=== PATIENT | female | born 1930 | race Caucasian/White ===

== ENCOUNTER 2018-07-09 12:58 | Inpatient (IN) | payer MEDICARE, OTHER ==
[~2018-07-09] VITALS: Ht 172.7 cm; Wt 86.1 kg
[2018-07-09] VITALS (29 sets, daily range): BP systolic 104–157; BP diastolic 41–63; BMI 29.0
[2018-07-09 13:25] LABS: BASOPHILS 0.2 % (0-2); EOSINOPHILS 0.2 % (0-7); HEMATOCRIT 25.8 % (36.0-48.0); HEMOGLOBIN 8.5 g/dL (12-16); IMMATURE GRANULOCYTES 0.2 % (0-5); LYMPHOCYTES 5.9 % (15-50); MCH 30.4 pg (26.0-34.0); MCHC 32.9 g/dL (31.0-37.0); MCV 92.1 fL (80.0-100.0); MONOCYTES 5.7 % (2-11); NEUTROPHILS 87.8 % (40-80); PLATELET COUNT 111 10x3/uL (130-400); RDW 15.2 % (11.5-14.5); WBC 5.6 10x3/uL (4.8-10.8)
[2018-07-09] MEDS ORDERED: CYPROHEPTAD2 MG/5 ML PO (13:27)
[2018-07-09] MEDS ORDERED: BUMETANIDE0.5 MG PO (13:27)
[2018-07-09] MEDS ORDERED: K-TAB10 MEQ PO (13:28)
[2018-07-09] MEDS ORDERED: BENTYL10 MG PO (13:28)
[2018-07-09] MEDS ORDERED: COZAAR25 MG PO (13:29)
[2018-07-09] MEDS ORDERED: PRAVACHOL80 MG PO (13:29)
[2018-07-09] MEDS ORDERED: LOW DOSE ASPIRI81 M1 PO (13:29)
[2018-07-09] MEDS ORDERED: FLOMAX0.4 MG PO (13:30)
[2018-07-09] MEDS ORDERED: ROBAXIN500 MG PO (13:30)
[2018-07-09] MEDS ORDERED: PROTONIX40 MG PO (13:31)
[2018-07-09] MEDS ORDERED: ALDACTONE25 MG PO (13:31)
[2018-07-09] MEDS ORDERED: LEVOXYL75 MCG PO (13:32)
[2018-07-09] MEDS ORDERED: FUROSEMIDE40 MG (13:32)
[2018-07-09 13:33] LABS: APTT 26.7 SECONDS (22.8-39.4); INR 1.13 (0.85-1.17)
[2018-07-09 13:37] LABS: ALBUMIN 2.8 g/dL (3.4-5.0); ANION GAP 10.6 mmol/L (8-16); BILIRUBIN - TOTAL 1.42 mg/dL (0.2-1.3); CARBON DIOXIDE 32.3 mmol/L (21.0-32.0); CREATININE - SERUM 0.9 mg/dL (0.6-1.3); POTASSIUM - SERUM 3.9 mmol/L (3.5-5.1); PROTEIN - SERUM 5.9 g/dL (6.4-8.2)
[2018-07-09 17:39] LABS: HEMATOCRIT 29.9 % (36.0-48.0); HEMOGLOBIN 10.1 g/dL (12-16)
--- NOTE | 2018-07-09 19:45 | NUR ---
REC'D TO CARE, PIER HAND PER FLOWSHEET. PT LYING SUPINE, BIPAP MASK ON. IV GTT PER FLOWSHEET - WILL TITRATE PER ORDER. L GROIN SITE C/D/I. PEDAL PULSES PALP - FEET WARM. PT NODS HEAD APPROP, TALKS WITH MASK ON. ORIENTED TO SITUATION BY NURSE. ALARMS ON. WILL CONT CLOSE MONITORING.
--- NOTE | 2018-07-09 20:33 | NUR ---
1615-FROM OR ACCOMPANIED BY OR TEAM-L GROIN SOFT AND DRY-WOUND VAD-L PPP-SKINNER TEMP-96.5-CALI BOLIVARGGER PLACED-R IJ INFUSING-N/S AT 100ML/W-MFA-EFHWPWQM 138SYS PORT CXR DONE-FAMILY BROUGHT TO [facility]-PT CHANGED FROM 10L SIMPLE MASK-TO 6L INDIRECT FIRE INFANTRYMAN-SAT 99%- 1630-CLEVIPREX PLACED ON [id number]-[id number]-610 SYS NTG GTT AT 30ML/H-DILAUDID 0.5MG IVP GIVEN- 1645-NOTED ABP DECREASED TO 128 AND NTG GTT TITRATED TO 20MLH-SR ON MONITOR 1700-NOTED HR 47 JUNCTIONAL-ABP 84 SYS -O2 SAT 84-DR PATEL NOTIFIED-STAT ABG AND HGB AND HCT DRAWN-O2 10L SIMPLE MASK-NTG TURNED OFF AND LEVOPHED GTT STARTED FOR 1.1 MCG-HR INCREASED TO 52?JUNCTIONAL VERSUS BLOCK-ABP INCREASED TO 162 SYS-DR PATEL CALLED WITH ALL RESULTS-ORDER RECIVED-DR MOTT NOTIFIED OF CONSULT-LASIX 20MG IVP GIVEN-LEVOPHED CHANGED TO DOAMINE AT 3MCG 1730-DR ANAYA PG'D WITH CONSULT 1720-RTURN CALL FROM DR MOTT-STATUS REPORT GIVEN-TELEPHONE GIVEN TO RT -SATURNINO FOR BIPAP SETTINGS 174-RETURN CALL FROM DR ANAYA RECIEVED AND STATUS REPORT GIVEN -12 LEAD DONE NOTED JUNCTIONAL-AT THIS TIME -CONTINUED DOPAMINE AT 3MCG -ADDITIONAL ORDERS RECIEVD-CHECKED PT MEDS FOR BETABLOCKER-NONE FOUND- 1814-NOTED POSSIBLE SR ON MONITOR VERSUS 2:1 BLOCK-2ND DEGREE-[address] AND ANALYZED SAME FOR SR WITH NO DETECTED BLOCK-[address] 184-DR MOTT AT [facility]-REMAIN ON BIPAP AND STRICT NPO-L GROIN WOUND VAC SOFT TO TOUCH-CONTAINER EMPTY
--- NOTE | 2018-07-09 20:45 | NUR ---
PT GIVEN BREAK FROM BIPAP TO 5L NC, ORAL CARE PROVIDED. FAMILY AT BS TO HELP ANSWER QUESTIONS FOR ADMISSION HX AND MED REC. PT TOLERATED WITHOUT DISTRESS. ANSWERING APPROP.
--- NOTE | 2018-07-09 21:06 | NUR ---
DR. PATEL UPDATED ON PT STATUS, HR 70S, SR AND SOMETIMES JUNCTIONAL STAYING SAME RATE. NEW ORDER REC'D.
[2018-07-09] MEDS ORDERED: CYPROHEPTADINE HCL PO (21:11)
--- NOTE | 2018-07-09 21:50 | NUR ---
DR. ANAYA UPDATED ON PT STATUS, CM - RATE/RHYTHM AND DOPAMINE ORDER CLARIFIED.
--- NOTE | 2018-07-09 22:36 | NUR ---
PT RESTING QUIETLY, ON BIPAP, NO SIGN OF DISTRESS. C/L IN REACH. ALARMS ON.
[2018-07-09] MEDS ORDERED: MULTI-DAY VITAM1 TAB PO (23:03)
[2018-07-09] MEDS ORDERED: VITAMIN E200 UNI1 PO (23:04)
[2018-07-09] MEDS ORDERED: EYLEA OP (23:09)
[2018-07-09] MEDS ORDERED: CYANOCOBALAMIN IM (23:11)
[2018-07-09] MEDS ORDERED: CALCIUM 600 +1 EAC3 PO (23:14)
[2018-07-09] MEDS ORDERED: PROBIOTIC BLEN1 EACH PO (23:17)
[2018-07-09] MEDS ORDERED: PRESERVISION AREDS 2 PO (23:21)
--- NOTE | 2018-07-09 23:30 | NUR ---
REASSESSMENT PER FLOWSHEET, NO ACUTE CHANGES. CONT BREAKS FROM BIPAP NEEDED. PT COOPERATIVE. DENIES PAIN AT THIS TIME. ALARMS ON AND C/L IN REACH.
[2018-07-10] VITALS (47 sets, daily range): BP systolic 108–149; BP diastolic 43–90; Ht 172.7 cm; Wt 86.1 kg
--- NOTE | 2018-07-10 01:50 | NUR ---
BREAK FROM BIPAP. ORAL CARE PROVIDED. PT ALERT AND ORIENTED. DENIES PAIN. REPOSITIONED TO L SIDE WITH PILLOWS. ALARMS ON AND C/L IN REACH.
--- NOTE | 2018-07-10 03:24 | NUR ---
REASSESSMENT PER FLOWSHEET, NO ACUTE CHANGES. VSS. CM - SR, JUNCTIONAL AT TIMES. PT COOPERATIVE, REPORTS "FEELING BETTER". L GROIN SITE C/D/I. ALARMS ON AND C/L IN REACH.
[2018-07-10 06:52] LABS: CALC OSMOLALITY 279 mosm/kg (275-300); CALCIUM 7.8 mg/dL (8.5-10.1); CARBON DIOXIDE 30.8 mmol/L (21.0-32.0); CHLORIDE - SERUM 101 mmol/L (98-107); CREATININE - SERUM 0.7 mg/dL (0.6-1.3); GLUCOSE 116 mg/dL (74-106); POTASSIUM - SERUM 3.5 mmol/L (3.5-5.1); SODIUM 138 mmol/L (136-145); UREA NITROGEN 22 mg/dL (7-18); eGFR NON AFRICAN AMERICAN 84 mL/min (90-120)
[2018-07-10 07:49] LABS: HEMATOCRIT 30.8 % (36.0-48.0); HEMOGLOBIN 10.5 g/dL (12-16); MCH 29.8 pg (26.0-34.0); MCHC 34.1 g/dL (31.0-37.0); MEAN PLATELET VOLUME 9.1 fL (7.4-10.4); PLATELET COUNT 90 10x3/uL (130-400); RDW 15.5 % (11.5-14.5); WBC 4.6 10x3/uL (4.8-10.8)
[2018-07-10 08:02] LABS: MCV 87.5 fL (80.0-100.0); RBC 3.52 10x6/uL (4.00-5.40)
--- NOTE | 2018-07-10 08:02 | NUR ---
PT AWAKE AND REQUESTING BEDPAN. ASSISTED
[2018-07-10 08:46] LABS: PLATELET ESTIMATE NORMAL
--- NOTE | 2018-07-10 09:32 | NUR ---
morning medications provided. son and granddaughter now at bedside.
--- NOTE | 2018-07-10 10:56 | NUR ---
RIGHT RADIAL ART LINE REMOVED. TIP INTACT. RIGHT AC PIV REMOVED, TIP INTACT.
--- NOTE | 2018-07-10 11:18 | NUR ---
PT ASSISTED BY PHYSICAL THERAPIST UP TO CHAIR AT BEDSIDE. NO DISTRESS.
--- NOTE | 2018-07-10 12:27 | NUR ---
PT HAS HAD ECHO. NOW EATING LUNCH. REMAINS IN CHAIR.
--- NOTE | 2018-07-10 14:39 | NUR ---
PHYSICAL THERAPY AT BEDSIDE TO ASSIST FROM CHAIR TO BED.
--- NOTE | 2018-07-10 16:47 | OP ---
PATIENT NAME: SANDRA HARDIN MEDICAL RECORD: [id number] :34 LOCATION:[facility] ADMISSION DATE:07/09/18 SURGEON: JOON PATEL MD DATE OF OPERATION: 07/09/2018 SURGEON: Joon Patel MD SCENE PAINTER: JACQUELINE Shane PROCEDURE PERFORMED: Repair, left external iliac artery and drain retroperitoneal hematoma. PREOPERATIVE DIAGNOSIS: Left external iliac artery hemorrhage and retroperitoneal hematoma with pseudoaneurysm following cardiac catheterization. POSTOPERATIVE DIAGNOSIS: Left external iliac artery hemorrhage and retroperitoneal hematoma with pseudoaneurysm following cardiac catheterization. ANESTHESIA: General endotracheal anesthesia. ESTIMATED BLOOD LOSS: 50 cc. COMPLICATIONS: None. SPECIMENS: None. CONDITION: Guarded. DISPOSITION: CV ICU. OPERATIVE FINDINGS: 1. Anemia, 3 units total transfused. 2. Hematoma with the arterial puncture site slightly lateral and just had a large lateral branch off the external iliac artery required division of a branching external iliac vein over the repair site and then a primary repair, no evidence of dissection and good flow after repair. The retroperitoneal hematoma extended proximally, was drained as much as possible as small localized collection seen on the ultrasound. The patient had had a previous tummy tuck or panniculectomy in this area and the subcutaneous tissue was very poor, a Prevena was placed at the end of the procedure. INDICATION: Acute hemorrhage, left external iliac artery following cardiac catheterization approximately 3 days previously. DESCRIPTION OF PROCEDURE: The patient was brought emergently to the operating suite. General anesthesia was obtained, the patient was prepped and draped, incision over the old incision site just above the inguinal ligament was made and was taken down through subcutaneous tissue. The inguinal ligament was retracted upwardly, freed, and the common femoral was encircled. It was severely calcified. The external iliac was dissected out until the injury site was identified and finger pressure was held. More proximal control was obtained and femoral vein branch, iliac vein branch bridging over the top of the external iliac artery was divided between ligatures and oversewn with Prolene. Then, the artery was repaired primarily with Prolene. Thorough irrigation was undertaken. Hemostasis was assured. Surgicel was used. The wound was closed in 4 layers OPERATIVE REPORT [id number] SANDRA HARDIN including clips and a Prevena was placed. The patient had Doppler of left posterior tibial and dorsalis pedis pulses and taken to cardiovascular ICU. TRANSINT:[id number] Voice Confirmation ID: [id number] DOCUMENT ID: [id number] cc: Alcides Fraga MD JOON PATEL MD at 1647 CC: ALCIDES WILLETT MD [id number] DICTATION DATE: 07/09/18 1649 EQUIPMENT OPERAT0R: 07/09/18 2242 ADM IN [place] [id number] [place] [id number]
--- NOTE | 2018-07-10 17:08 | NUR ---
CALLED AND SPOKE WITH DR MOTT. PT C/O SOB. WILL ADD NEB TREATMENT.
[2018-07-11] VITALS (26 sets, daily range): BP systolic 111–157; BP diastolic 44–79
--- NOTE | 2018-07-11 09:15 | NUR ---
SHIFT ASSESSMENT COMPLETE. MORNING MEDICATIONS PROVIDED.
--- NOTE | 2018-07-11 12:45 | MORECARE ---
CASE MANAGEMENT DISCHARGE SUMMARY PATIENT: SANDRA HARDIN UNIT: [id number] ADM DATE: 07/09/18 AGE: 88 : 32 SEX: F ROOM/BED: D[facility] AUTHOR: BURT WETZEL PHYSICIAN: REFERRING PHYSICIAN: JULIAN PATEL MD DATE OF SERVICE: 07/11/18 Discharge Plan Patient Name: SANDRA HARDIN Facility: [facility]:[place] : 1930 Planned Disposition: Home or Self Care Anticipated Discharge Date: Discharge Date: Expected LOS: Initial Reviewer: [email or web address] Initial Review Date: 07/09/2018 Generated: 07/11/18 1:45 pm Patient Name: SANDRA HARDIN Page 12368 at 1245 All edits/amendments must be made on the electronic document DICTATION DATE: 07/11/18 1245 GORING CUTTER: YAZAN 07/11/18 1245 RPT#: [id number] PA DATE: STATUS: ADM IN [facility] [address] [place] [address] END OF REPORT
--- NOTE | 2018-07-11 12:48 | NUR ---
PT ASSISTED UP TO BEDSIDE COMMODE. C/O UPPER ABD PAIN
--- NOTE | 2018-07-11 12:54 | MORECARE ---
CASE MANAGEMENT DISCHARGE SUMMARY PATIENT: SANDRA HARDIN UNIT: [id number] ADM DATE: 07/09/18 AGE: 88 : 32 SEX: F ROOM/BED: D.[facility] AUTHOR: BURT WETZEL PHYSICIAN: REFERRING PHYSICIAN: JULIAN PATEL MD DATE OF SERVICE: 07/11/18 Discharge Plan Patient Name: SANDRA HARDIN [facility] : 1930 Planned Disposition: Home or Self Care Anticipated Discharge Date: Discharge Date: Expected LOS: Initial Reviewer: [email or web address] Initial Review Date: 07/09/2018 Generated: 07/11/18 1:54 pm DCPIA - Discharge Planning Initial Assessment Updated by [email or web address]: Haylee De Jesus on 07/11/18 12:46 pm * Is the patient Alert and Oriented? Yes * How many steps to enter\exit or inside your home? * PCP WISAM BEDOLLA * Pharmacy [facility] * Preadmission Environment Home Alone * ADLs Independent * Other Equipment WALKER, W/C, CANE, LIFE ALERT * List name and contact numbers for known caregivers / representatives who currently or will assist patient after discharge: SAKSHI HARDIN - DAUGHTER - [phone] * Verbal permission to speak to the caregivers and representatives has been obtained from the patient. Yes * Community resources currently utilized None * Additional services required to return to the preadmission environment? No * Can the patient safely return to the preadmission environment? Yes * Has this patient been hospitalized within the prior 30 days at any hospital? Yes Last DP export: 07/11/18 11:45 a Patient Name: SANDRA HARDIN Page 58091 at 1254 All edits/amendments must be made on the electronic document DICTATION DATE: 07/11/18 1253 PATTERN CARRIER: YAZAN 07/11/18 1253 RPT#: [id number] DC DATE: STATUS: ADM IN [facility] [address] [place] [address] END OF REPORT
--- NOTE | 2018-07-11 13:01 | MORECARE ---
CASE MANAGEMENT DISCHARGE SUMMARY PATIENT: SANDRA HARDIN UNIT: [id number] ADM DATE: 07/09/18 AGE: 88 : 32 SEX: F ROOM/BED: D.[facility] AUTHOR: DAMARI,DOC PHYSICIAN: REFERRING PHYSICIAN: JULIAN PATEL MD DATE OF SERVICE: 07/11/18 Discharge Plan Patient Name: SANDRA HARDIN Facility: [facility]:[place] : 1930 Planned Disposition: Home or Self Care Anticipated Discharge Date: Discharge Date: Expected LOS: Initial Reviewer: [email or web address] Initial Review Date: 07/09/2018 Generated: 07/11/18 2:00 pm Comments DCP- Discharge Planning Updated by [email or web address]: Haylee De Jesus on 07/11/18 11:[address] Patient Name: SANDRA HARDIN Admission Status: ER Accout number: [id number] Admission Date: 07-09-2018 : 1930 Admission Diagnosis: Attending: JULIAN PATEL Current LOS: 2 Anticipated DC Date: Planned Disposition: Home or Self Care Primary Insurance: MEDICARE A & B Discharge Planning Comments: CM met with patient at bedside about discharge planning /needs. Patient states she lives alone. Patient states she plans to discharge to her daughter's home. States she will have family transport her home upon discharge. Patient states her home environment is safe. Denies any discharge needs or concerns at this time. CM will continue to follow and assist as needed with discharge planning / needs. Personnel Supervisor: Haylee De Jesus DCPIA - Discharge Planning Initial Assessment Updated by [email or web address]: Haylee De Jesus on 07/11/18 12:46 pm * Is the patient Alert and Oriented? Yes * How many steps to enter\exit or inside your home? * PCP WISAM BEDOLLA * Pharmacy [facility] * Preadmission Environment Home Alone * ADLs Independent * Other Equipment WALKER, W/C, CANE, LIFE ALERT * List name and contact numbers for known caregivers / representatives who currently or will assist patient after discharge: SAKSHI HARDIN - DAUGHTER - [phone] * Verbal permission to speak to the caregivers and representatives has been obtained from the patient. Yes * Community resources currently utilized None * Additional services required to return to the preadmission environment? No * Can the patient safely return to the preadmission environment? Yes * Has this patient been hospitalized within the prior 30 days at any hospital? Yes Last DP export: 07/11/18 11:54 a Patient Name: SANDRA HARDIN Page 64892 at 1301 All edits/amendments must be made on the electronic document DICTATION DATE: 07/11/18 1300 COMMISSIONED SALES ASSOCIATE: YAZAN 07/11/18 1300 RPT#: [id number] DC DATE: STATUS: ADM IN [facility] [address] [place] [address] END OF REPORT
--- NOTE | 2018-07-11 17:30 | NUR ---
PT ASSISTED FROM CHAIR TO BED. CENTRAL LINE DRESSING AT RIGHT JUGULAR CHANGED.
[2018-07-12] VITALS (12 sets, daily range): BP systolic 122–171; BP diastolic 57–96
[2018-07-12 09:18] LABS: ALBUMIN 2.6 g/dL (3.4-5.0); ANION GAP 8.9 mmol/L (8-16); BILIRUBIN - TOTAL 0.85 mg/dL (0.2-1.3); CALCIUM 8.1 mg/dL (8.5-10.1); CARBON DIOXIDE 31.1 mmol/L (21.0-32.0); CREATININE - SERUM 0.9 mg/dL (0.6-1.3)
--- NOTE | 2018-07-12 10:13 | NUR ---
Rehab Prescreening Consult recieved and the chart has been reviewed. She is a good ARU candidate if she is able to actively participate in the 3 hrs of therapy daily that medicare requires. Malu Valdes RN Clinical Liaison, Rehab
[2018-07-12 10:26] LABS: HEMATOCRIT 34.5 % (36.0-48.0); HEMOGLOBIN 11.1 g/dL (12-16); MCH 29.7 pg (26.0-34.0); MCHC 32.2 g/dL (31.0-37.0); MCV 92.2 fL (80.0-100.0); MEAN PLATELET VOLUME 9.6 fL (7.4-10.4); RBC 3.74 10x6/uL (4.00-5.40); RDW 15.2 % (11.5-14.5)
--- NOTE | 2018-07-12 11:20 | NUR ---
Nutrition Follow Up: Pt was unavailable at the time of RD visit. Interview deferred. Diet: Regular; Ensure 1x/d PO Intake: 35% meal avg No BM since admit I>O Labs reviewed Meds noted including Bumex Rec continue current diet, supplement regimen. RD following.
--- NOTE | 2018-07-12 14:20 | NUR ---
R IJ DC'D. MANUAL PRESSURE HELD X 2 MIN. DRESSED WITH 2X2 AND TEGADERM.
[2018-07-12] MEDS ORDERED: BUMETANIDE0.5 MG PO (14:32)
[2018-07-12] MEDS ORDERED: COLACE100 MG PO (14:33)
[2018-07-12] MEDS ORDERED: Senokot-S Tablet PO (14:33)
[2018-07-12] MEDS ORDERED: LIDODERM 5 %1 PATCH TRANSDERM (14:34)
--- NOTE | 2018-07-12 15:03 | CN ---
PATIENT NAME:SANDRA COPPOLA MEDICAL RECORD: [id number] : 34 LOCATION:[facility] ADMIT DATE: 07/09/18 ACCOUNT: [id number] CONSULTING PHYSICIAN: BEVERLY ANAYA MD REFERRING PHYSICIAN: JULIAN PATEL MD DATE OF CONSULTATION: 07/10/2018 CARDIOLOGY CONSULTATION DATE OF SERVICE: 07/10/2018 ADMITTING DIAGNOSES: 1. Bradycardia. 2. Intermittent junctional bradycardia. 3. Anemia. 4. Status post pseudoaneurysm bleed. 5. Peripheral vascular disease. 6. Shortness of breath, dyspnea on exertion. 7. Aortic stenosis. 8. Mitral regurgitation. HISTORY OF PRESENT ILLNESS: Mrs. Coppola was seen by Cardiology at [facility] and underwent cardiac catheterization 2 days ago. She presented yesterday to [facility] with an acute groin bleed, was transferred here. Dr. Patel repaired a pseudoaneurysm. She has had intermittent junctional bradycardia since the procedure. She is on no AV blocking medications. At this point, her bradycardia is becoming less. She is on dopamine, but only at 2 mcg and this is being weaned off. She is asymptomatic with the bradycardia and has no hemodynamic compromise with the bradycardia. PHYSICAL EXAMINATION: GENERAL APPEARANCE: Well-nourished, well-developed, appears stated age. Level of distress, comfortable. PSYCHIATRIC: Mental status, alert, normal affect. Orientation, oriented to time, place and person. EYES: Lids and conjunctiva, noninjected. No discharge, no pallor. ENT: Lips, teeth, gums, normal dentition. Oropharynx, no cyanosis, no pallor. NECK: Carotid arteries, bilateral normal upstroke, no bruits, no thrills. JUGULAR VEINS: No jugular venous pressure or distention. CERVICAL LYMPH NODES: Nontender, nonenlarged. THYROID: Not enlarged. Nontender. No nodules. LUNGS: Respiratory effort, unlabored. CHEST: Normal curvature. No thoracic deformity. No chest wall tenderness. Percussion, resonant. Auscultation, clear. No wheezes, no rales, no rhonchi. CARDIOVASCULAR: Precordial exam, nondisplaced. No heaves or pericardial thrills. Rate and rhythm, regular. Heart sounds, normal S1, normal S2. No S3, no gallop, no rub. Systolic murmur, not heard. Diastolic murmur, not heard. EXTREMITIES: No cyanosis, no edema. Peripheral pulses, full and equal in all extremities, except as noted. No bruits appreciated. ABDOMEN: Soft, nondistended. Normal aorta. No bruit. Nontender. No masses. Liver, nontender, no hepatomegaly. Spleen, nontender, no splenomegaly. MUSCULOSKELETAL: No joint tenderness. No joint swelling. No erythema. NEUROLOGICAL: Normal gait, normal strength, normal tone. SKIN: Warm and dry. CONSULT REPORT [id number] SANDRA COPPOLA OVERALL IMPRESSION: Intermittent bradycardia with junctional rhythm, has no hemodynamic compromise and is asymptomatic at this time. I do not think she needs a permanent pacemaker from the standpoint of her valvular heart disease. We did get an echo. She has ecpsozfn-cc-qufspg aortic stenosis, zyqfgtva-be-fffbkb mitral regurgitation. This is being handled by the production machine tender that she sees at [facility] in [place], hence would not make any intervention on this as well. TRANSINT:[id number] Voice Confirmation ID: [id number] DOCUMENT ID: [id number] BEVERLY ANAYA MD at 1503 CC: [id number] DICTATION DATE: 07/10/18 1619 FILM WRITER: 07/10/18 2313 ADM IN [facility] [address] [place] [id number]
--- NOTE | 2018-07-12 15:03 | EC ---
PATIENT:SANDRA HARDIN DATE OF SERVICE: 07/09/18 SEX: F MEDICAL RECORD: [id number] DATE OF : [birth year] LOCATION:[place] [address] AGE OF PATIENT: 88 ADMISSION DATE: 07/09/18 REFERRING PHYSICIAN: INTERPRETING PHYSICIAN: BEVERLY SALOMON MD ECHOCARDIOGRAM REPORT ECHO CHARGES 4 ECHO COMPLETE Date: 07/10/18 CLINICAL DIAGNOSIS: ELVALUATE MITRAL VALVE ECHOCARDIOGRAPHIC MEASUREMENTS (adult normal given) AC root (d.<3.7cm) 4.3 cm LV Septum d (<1.2 cm> 1.4 cm Valve Excursion 1.3 cm LV Septum (systole) 2.0 cm Left Atria (s.<4.0cm> 4.6 cm LVPW d(<1.2cm) 1.5 cm RV (d.<2.3cm) 4.9 cm LVPW (sytole) 2.0 cm LV diastole(<5.6CM) 5.0 cm MV E-F(>70mm/sec) cm LV systole 3.2 cm LVOT Diameter 1.9 cm MV exc.(>10mm) 1.5 cm Est.ejection fraction (50-75%) % DOPPLER: LVIT cm/sec A 108 cm/sec E 165 cm/sec LA cm/sec RVSP 54 mmHg LVOT 150 cm/sec AOP1/2T m/s Asc. Ao 311 cm/sec RVOT 121 cm/sec RA cm/sec PA 154 cm/sec AV Gradient Peak 38.64mmHg AV Mean 22.15mmHg AV Area 1.2 cm MV Gradient Peak 9.05 mmHg MV Mean 2.72 mmHg MV Area cm COMMENTS: Concrete Batcher: Zeenat CORNELL Construction Teacher: 1 Dr. Salomon TAPE# PACS Pericardial Effusion N DATE OF SERVICE: 07/10/2018 Echocardiogram FINDINGS: 1. Left ventricular chamber size is within normal limits. Left ventricular systolic function is normal. Overall ejection fraction estimated at 60%. 2. Left atrium is enlarged at 4.6 cm. Right atrium and right ventricular chamber sizes are as well mildly dilated. 3. Valvular structures: Aortic valve demonstrates moderate calcific aortic ECHOCARDIOGRAM REPORT [id number] SANDRA HARDIN stenosis, valve area calculates 1.2 cm where is a gradient 38 mm across the valve. The mitral valve is calcified. There is mild mitral stenosis; gradient is 9 mm across the mitral valve. 4. Doppler interrogation elsewise reveals mild aortic insufficiency, moderate severe mitral regurgitation, moderate tricuspid regurgitation, no other valvular insufficiency or stenosis. Pulmonary systolic pressure is estimated 54 mmHg. 5. No evidence of pericardial effusion or left ventricular thrombus. TRANSINT:[id number] Voice Confirmation ID: [id number] DOCUMENT ID: [id number] BEVERLY SALOMON MD at 1503 CC: [id number] DICTATION DATE: 07/10/18 1549 GLAZE HANDLER: 07/11/18 0001 ADM IN [facility] [address] [place] [id number]
--- NOTE | 2018-07-12 16:56 | MORECARE ---
CASE MANAGEMENT DISCHARGE SUMMARY PATIENT: SANDRA HARDIN UNIT: [id number] ADM DATE: 07/09/18 AGE: 88 : 34 SEX: F ROOM/BED: D.06 AUTHOR: DAMARI,DOC PHYSICIAN: REFERRING PHYSICIAN: JULIAN PATEL MD DATE OF SERVICE: 07/12/18 Discharge Plan Patient Name: SANDRA HARDIN Facility: [facility]:[place] : 1930 Planned Disposition: Inpatient Rehab Anticipated Discharge Date: Discharge Date: 07/12/2018 Expected LOS: Initial Reviewer: [email or web address] Initial Review Date: 07/09/2018 Generated: 07/12/18 5:56 pm DCP- Discharge Planning Updated by [email or web address]: Haylee De Jesus on 07/11/18 11:[address] Patient Name: SANDRA HARDIN Admission Status: ER Accout number: [id number] Admission Date: 07-09-2018 : 1930 Admission Diagnosis: Attending: JULIAN PATEL Current LOS: 2 Anticipated DC Date: Planned Disposition: Home or Self Care Primary Insurance: MEDICARE A & B Discharge Planning Comments: CM met with patient at bedside about discharge planning /needs. Patient states she lives alone. Patient states she plans to discharge to her daughter's home. States she will have family transport her home upon discharge. Patient states her home environment is safe. Denies any discharge needs or concerns at this time. CM will continue to follow and assist as needed with discharge planning / needs. Cooker Chip: Haylee De Jesus DCPIA - Discharge Planning Initial Assessment Updated by [email or web address]: Haylee De Jesus on 07/11/18 12:46 pm * Is the patient Alert and Oriented? Yes * How many steps to enter\exit or inside your home? * PCP WISAM BEDOLLA * Pharmacy [facility] * Preadmission Environment Home Alone * ADLs Independent * Other Equipment WALKER, W/C, CANE, LIFE ALERT * List name and contact numbers for known caregivers / representatives who currently or will assist patient after discharge: SAKSHI HARDIN - DAUGHTER - [phone] * Verbal permission to speak to the caregivers and representatives has been obtained from the patient. Yes * Community resources currently utilized None * Additional services required to return to the preadmission environment? No * Can the patient safely return to the preadmission environment? Yes * Has this patient been hospitalized within the prior 30 days at any hospital? Yes Last DP export: 07/11/18 12:01 p Patient Name: SANDRA HARDIN Page 47612 at 1656 All edits/amendments must be made on the electronic document DICTATION DATE: 07/12/181655 FOIL STAMP OPERATOR: YAZAN 07/12/181655 RPT#: [id number] DC DATE:07/12/18 STATUS: DIS IN [facility] [address] [place] [address] END OF REPORT
--- NOTE | 2018-07-12 17:05 | MORECARE ---
CASE MANAGEMENT DISCHARGE SUMMARY PATIENT: SANDRA HARDIN UNIT: [id number] ADM DATE: 07/09/18 AGE: 88 : 34 SEX: F ROOM/BED: D.06 AUTHOR: DAMARI,DOC PHYSICIAN: REFERRING PHYSICIAN: JULIAN PATEL MD DATE OF SERVICE: 07/12/18 Discharge Plan Patient Name: SANDRA HARDIN Facility: [facility]:[place] : 1930 Planned Disposition: Inpatient Rehab Anticipated Discharge Date: Discharge Date: 07/12/2018 Expected LOS: Initial Reviewer: [id number] Initial Review Date: 07/09/2018 Generated: 07/12/18 6:05 pm Comments DCP- Discharge Planning Updated by [email or web address]: Haylee De Jesus on 07/12/18 3:[address] Patient Name: SANDRA HARDIN Encounter No: [id number] : 1930 Primary Insurance: MEDICARE A & B Anticipated DC Date: Planned Disposition: Inpatient Rehab External Planned Provider: : Ga/Emigdio IMM EXPLAINED AND SERVED 07/12/18 @ 1430 DCP follow-up note: Patient and family in agreement with discharge plan. No changes to plan. Case management will follow and assist as needed. Haylee De Jesus DCP- Discharge Planning Updated by [id number]: Haylee De Jesus on 07/11/18 11:[address] Patient Name: SANDRA HARDIN Admission Status: ER Accout number: [id number] Admission Date: 07-09-2018 : 1930 Admission Diagnosis: Attending: JULIAN PATEL Current LOS: 2 Anticipated DC Date: Planned Disposition: Home or Self Care Primary Insurance: MEDICARE A & B Discharge Planning Comments: CM met with patient at bedside about discharge planning /needs. Patient states she lives alone. Patient states she plans to discharge to her daughter's home. States she will have family transport her home upon discharge. Patient states her home environment is safe. Denies any discharge needs or concerns at this time. CM will continue to follow and assist as needed with discharge planning / needs. Collection Systems Administrator: Haylee De Jesus DCPIA - Discharge Planning Initial Assessment Updated by [email or web address]: Haylee De Jesus on 07/11/18 12:46 pm * Is the patient Alert and Oriented? Yes * How many steps to enter\exit or inside your home? * PCP WISAM BEDOLLA * Pharmacy [facility] * Preadmission Environment Home Alone * ADLs Independent * Other Equipment WALKER, W/C, CANE, LIFE ALERT * List name and contact numbers for known caregivers / representatives who currently or will assist patient after discharge: SAKSHI HARDIN - DAUGHTER - [phone] * Verbal permission to speak to the caregivers and representatives has been obtained from the patient. Yes * Community resources currently utilized None * Additional services required to return to the preadmission environment? No * Can the patient safely return to the preadmission environment? Yes * Has this patient been hospitalized within the prior 30 days at any hospital? Yes Coverage Notice Reviewer: [id number] Steven De Jesus Notice Issued Date-Time: 07/12/2018 14:30 Notice Type: IM Discharge Notice Notice Delivered To: Patient Relationship to Patient: Self [employer] Quality Control Technician Name: Delivery Method: HAND - Hand Delivered Melany Days: Prior Verbal Notification: Recipient Understood Notice: Yes Recipient Signature: Yes Med Rec Note Co-signed by Attending: Coverage Notice Comment: Last DP export: 07/12/18 3:56 p Patient Name: SANDRA HARDIN Page [phone] at 1705 All edits/amendments must be made on the electronic document DICTATION DATE: 07/12/181703 SWITCHING OPERATOR: YAZAN 07/12/181703 RPT#: [id number] DC DATE:07/12/18 STATUS: DIS IN [facility] [address] [place] [address] END OF REPORT
--- NOTE | 2018-07-15 13:07 | MORECARE ---
CASE MANAGEMENT DISCHARGE SUMMARY PATIENT: SANDRA HARDIN UNIT: [id number] ADM DATE: 07/09/18 AGE: 88 : 32 SEX: F ROOM/BED: D.06 AUTHOR: DAMARI,DOC PHYSICIAN: REFERRING PHYSICIAN: JULIAN PATEL MD DATE OF SERVICE: 07/15/18 Discharge Plan Patient Name: SANDRA HARDIN Facility: [facility]:[place] : 1930 Planned Disposition: Inpatient Rehab Anticipated Discharge Date: Discharge Date: 07/12/2018 Expected LOS: Initial Reviewer: [id number] Initial Review Date: 07/09/2018 Generated: 07/15/18 2:07 pm Comments DCP- Discharge Planning Updated by [id number]: Haylee De Jesus on 07/12/18 3:[address] Patient Name: SANDRA HARDIN Encounter No: [id number] : 1930 Primary Insurance: MEDICARE A & B Anticipated DC Date: Planned Disposition: Inpatient Rehab External Planned Provider: : Ga/Emigdio IMM EXPLAINED AND SERVED 07/12/18 @ 1430 DCP follow-up note: Patient and family in agreement with discharge plan. No changes to plan. Case management will follow and assist as needed. Haylee De Jesus DCP- Discharge Planning Updated by [email or web address]: Haylee De Jesus on 07/11/18 11:[address] Patient Name: SANDRA HARDIN Admission Status: ER Accout number: [id number] Admission Date: 07-09-2018 : 1930 Admission Diagnosis: Attending: JULIAN PATEL Current LOS: 2 Anticipated DC Date: Planned Disposition: Home or Self Care Primary Insurance: MEDICARE A & B Discharge Planning Comments: CM met with patient at bedside about discharge planning /needs. Patient states she lives alone. Patient states she plans to discharge to her daughter's home. States she will have family transport her home upon discharge. Patient states her home environment is safe. Denies any discharge needs or concerns at this time. CM will continue to follow and assist as needed with discharge planning / needs. Manager Mba: Haylee De Jesus DCPIA - Discharge Planning Initial Assessment Updated by [id number]: Haylee De Jesus on 07/11/18 12:46 pm * Is the patient Alert and Oriented? Yes * How many steps to enter\exit or inside your home? * PCP WISAM BEDOLLA * Pharmacy [facility] * Preadmission Environment Home Alone * ADLs Independent * Other Equipment WALKER, W/C, CANE, LIFE ALERT * List name and contact numbers for known caregivers / representatives who currently or will assist patient after discharge: SAKSHI HARDIN - DAUGHTER - [phone] * Verbal permission to speak to the caregivers and representatives has been obtained from the patient. Yes * Community resources currently utilized None * Additional services required to return to the preadmission environment? No * Can the patient safely return to the preadmission environment? Yes * Has this patient been hospitalized within the prior 30 days at any hospital? Yes Coverage Notice Reviewer: [id number] Steven De Jesus Notice Issued Date-Time: 07/12/2018 14:30 Notice Type: IM Discharge Notice Notice Delivered To: Patient Relationship to Patient: Self Alley Worker Name: Delivery Method: HAND - Hand Delivered Melany Days: Prior Verbal Notification: Recipient Understood Notice: Yes Recipient Signature: Yes Med Rec Note Co-signed by Attending: Coverage Notice Comment: Last DP export: 07/12/18 4:05 p Patient Name: SANDRA HARDIN Page [id number] at 1307 All edits/amendments must be made on the electronic document DICTATION DATE: 07/15/18 1306 FREIGHT CHECKER: YAZAN 07/15/18 1306 RPT#: [id number] DC DATE:07/12/18 STATUS: DIS IN [facility] [address] [place] [address] END OF REPORT
== END 2018-07-12 16:49 | DRG 908 ==
LOC: D.ER 12:58 → D.CVICU 13:51 → D.EDHOLD 13:51 → D.CVICU 15:59
PROVIDERS: Family Medicine; Internal Medicine Cardiovascular Disease; ADMIT Thoracic Surgery (Cardiothoracic Vascular Surgery); ATTEND Thoracic Surgery (Cardiothoracic Vascular Surgery)
PROC: 04QJ0ZZ Repair Left External Iliac Artery, Open Approach (ICD-10-PCS; principal; 2018-07-09 14:00)
DX: I97.610 Postprocedural hemorrhage of a circulatory system organ or structure following a cardiac catheterization (principal); G72.81 Critical illness myopathy; J95.89 Other postprocedural complications and disorders of respiratory system, not elsewhere classified; I97.89 Other postprocedural complications and disorders of the circulatory system, not elsewhere classified; S36.892A Contusion of other intra-abdominal organs, initial encounter; R00.1 Bradycardia, unspecified; D64.9 Anemia, unspecified; I73.9 Peripheral vascular disease, unspecified; I35.0 Nonrheumatic aortic (valve) stenosis; I34.0 Nonrheumatic mitral (valve) insufficiency; R09.02 Hypoxemia; I10 Essential (primary) hypertension; I72.4 Aneurysm of artery of lower extremity; I97.630 Postprocedural hematoma of a circulatory system organ or structure following a cardiac catheterization; I11.0 Hypertensive heart disease with heart failure; I50.9 Heart failure, unspecified

== ENCOUNTER 2018-07-12 15:15 | Inpatient (IN) | payer MEDICARE, OTHER ==
[~2018-07-12] VITALS: Ht 172.7 cm; Wt 70.3 kg
[~2018-07-12 15:15] MED LIST: ALDACTONE25 MG PO; BENTYL10 MG PO; BUMETANIDE0.5 MG PO; CALCIUM 600 +1 EAC3 PO; COLACE100 MG PO; COZAAR25 MG PO; CYANOCOBALAMIN IM; CYPROHEPTAD2 MG/5 ML PO; CYPROHEPTADINE HCL PO; EYLEA OP; FLOMAX0.4 MG PO; FUROSEMIDE40 MG; K-TAB10 MEQ PO; LEVOXYL75 MCG PO; LIDODERM 5 %1 PATCH TRANSDERM; LOW DOSE ASPIRI81 M1 PO; MULTI-DAY VITAM1 TAB PO; PRAVACHOL80 MG PO; PRESERVISION AREDS 2 PO; PROBIOTIC BLEN1 EACH PO; PROTONIX40 MG PO; ROBAXIN500 MG PO; Senokot-S Tablet PO; VITAMIN E200 UNI1 PO
[2018-07-12 18:28] VITALS: BP 161/73; BMI 23.6
--- NOTE | 2018-07-12 19:05 | NUR ---
PATIENT IS RESTING IN HER BED. SHE REQUESTS TO BE PLACED ON THE BEDPAN. CALL LIGHT IN REACH AND PATIENT DOES USE HER CALL LIGHT FOR NEEDS. BED IS DOWN LOW WITH SIDE RAILS UP X2. CL IS IN REACH.
[2018-07-12 20:57] VITALS: BP 148/64
--- NOTE | 2018-07-13 00:02 | NUR ---
PATIENT IS RESTING IN HER BED. SHE DENIES ANY NEEDS. BED IS DOWN LOW WITH SIDE RAILS UP X2 AND CALL LIGHT IN REACH.
--- NOTE | 2018-07-13 04:02 | NUR ---
PATIENT REQUESTING BEDPAN. NO OTHER REQUESTS. BED IS DOWN LOW, CALL LIGHT IS IN REACH.
[2018-07-13 06:56] LABS: CARBON DIOXIDE 29.8 mmol/L (21.0-32.0); CHLORIDE - SERUM 99 mmol/L (98-107); CREATININE - SERUM 0.7 mg/dL (0.6-1.3); POTASSIUM - SERUM 3.8 mmol/L (3.5-5.1); SODIUM 135 mmol/L (136-145); eGFR NON AFRICAN AMERICAN 84 mL/min (90-120)
[2018-07-13 06:57] LABS: CALC OSMOLALITY 270 mosm/kg (275-300); GLUCOSE 97 mg/dL (74-106); UREA NITROGEN 16 mg/dL (7-18)
[2018-07-13 07:15] LABS: HEMATOCRIT 32.1 % (36.0-48.0); HEMOGLOBIN 10.5 g/dL (12-16); MCH 29.6 pg (26.0-34.0); MCHC 32.7 g/dL (31.0-37.0); MCV 90.4 fL (80.0-100.0); MEAN PLATELET VOLUME 9.5 fL (7.4-10.4); PLATELET COUNT 91 10x3/uL (130-400); RBC 3.55 10x6/uL (4.00-5.40); RDW 14.6 % (11.5-14.5)
[2018-07-13 07:16] LABS: WBC 2.9 10x3/uL (4.8-10.8)
[2018-07-13 07:46] LABS: LYMPHOCYTES 14 % (15-50); MONOCYTES 2 % (2-11); NEUTROPHILS 84 % (40-80); PLATELET ESTIMATE DECREASED
--- NOTE | 2018-07-13 08:00 | NUR ---
PATIENT IN REHAB ROOM. WORKING WITH PHYSICAL THERAPIST. BREAKFAST BROUGHT INTO REHAB ROOM FOR PATIENT. PATIENT DENIES ANY PAIN/DISC AT THIS TIME.
[2018-07-13 08:32] VITALS: BP 139/87
--- NOTE | 2018-07-13 09:26 | NUR ---
PATIENT RESTING IN BED AFTER THERAPY. VOICES NO NEEDS. CALL LIGHT WITHIN REACH. WILL CONTINUE WITH PLAN OF CARE
[2018-07-13 10:28] VITALS: Ht 172.7 cm; Wt 70.3 kg
--- NOTE | 2018-07-13 12:52 | NUR ---
PATIENT IS A MIN ASST FROM BED TO WHEELCHAIR AND FROM WHEELCHAIR ONTO TOILET
--- NOTE | 2018-07-13 17:38 | NUR ---
SON IN ROOM VISITING. PATIENT SITTING UP IN BED TO EAT SUPPER.
[2018-07-13 19:38] VITALS: BP 134/68
--- NOTE | 2018-07-13 19:45 | NUR ---
AWAKE AND ALERT. ASSISTED TO BATHROOM. NOTED MILD SHORTNESS OF BREATH WITH EXERTION. O2/2L PER NASAL CANNULA ORDERED AND APPLIED TO PATIENT. LUNG FITZPATRICK CLEAR TO AUSCULTATION. RIGHT CHEST PORT IN PLACE. WOUND VAC IN PLACE TO LEFT GGROIN AREA. DENIES PAIN. CALL LIGHT IN REACH.
--- NOTE | 2018-07-14 03:05 | NUR ---
CONTINUES RESTING IN BED. NO DISTRESS NOTED.
--- NOTE | 2018-07-14 04:54 | NUR ---
QUIET HOURS. RESTING IN BED WITH O2/2L ON PER NASAL CANNULA. NO DISTRESS NOTED. CALL LIGHT IN REACH.
[2018-07-14 07:47] VITALS: BP 127/66
--- NOTE | 2018-07-14 10:02 | NUR ---
PATIENT ALERT AND ORIENTED THIS MORNING. ASSISTED UP TO BATHROOM WITH MIN ASSIST. ATE 10% OF BRAKFAST. HAD INCONTIENT EPISODE OF LOOSE STOOL (DIDN'T MAKE IT TO THE BATHROOM IN TIME). SON WAS HERE TO VISIT THIS MORNING AND SHE ENJOYED HIS VISIT. RESTING QUIETLY AT THIS TIME. CALL LIGHT WITHIN REACH. WILL CONTINUE TO MONITOR.
--- NOTE | 2018-07-14 19:18 | NUR ---
AWAKE AND ALERT. TALKING ON PHONE WITH FAMILY. RESPIRATIONS UNLABORED. NO DISTRESS NOTED. CALL LIGHT IN REACH.
[2018-07-14 19:31] VITALS: BP 127/70
--- NOTE | 2018-07-15 01:24 | NUR ---
ASSISTED TO BATHROOM AND BACK TO BED. NO C/O PAIN. CONTINUES TO HAVE MILD SHORTNESS OF BREATH WITH EXERTION. O2/2L ON PER NASAL CANNULA.
--- NOTE | 2018-07-15 05:23 | NUR ---
RESTING QUIETLY. NO CHANGES IN CONDITION THIS SHIFT. RESPIRATIONS UNLABORED. CALL LIGHT IN REACH.
--- NOTE | 2018-07-15 07:30 | NUR ---
ALERT AND ORIENTED. WO C/O PAIN. RESP EVEN AND UNLABORED. CL IN REACH.
[2018-07-15 07:48] LABS: BASOPHILS 0.3 % (0-2); EOSINOPHILS 4.8 % (0-7); HEMATOCRIT 35.1 % (36.0-48.0); HEMOGLOBIN 11.2 g/dL (12-16); IMMATURE GRANULOCYTES 0.3 % (0-5); LYMPHOCYTES 14.8 % (15-50); MCH 29.5 pg (26.0-34.0); MCHC 31.9 g/dL (31.0-37.0); MCV 92.4 fL (80.0-100.0); MEAN PLATELET VOLUME 9.9 fL (7.4-10.4); MONOCYTES 8.6 % (2-11); NEUTROPHILS 71.2 % (40-80); PLATELET COUNT 107 10x3/uL (130-400); RDW 14.6 % (11.5-14.5); WBC 2.9 10x3/uL (4.8-10.8)
[2018-07-15 08:00] VITALS: BP 137/95
[2018-07-15 08:02] LABS: ANION GAP 8.6 mmol/L (8-16); CARBON DIOXIDE 32.1 mmol/L (21.0-32.0); CREATININE - SERUM 0.8 mg/dL (0.6-1.3); POTASSIUM - SERUM 3.7 mmol/L (3.5-5.1)
--- NOTE | 2018-07-15 10:16 | NUR ---
PARTICIPATING IN THERAPY AT THIS TIME. NO DISTRESS NOTED.
--- NOTE | 2018-07-15 12:58 | NUR ---
SHOWER GIVEN TODAY PER THERAPY.
--- NOTE | 2018-07-15 14:31 | NUR ---
PATIENT ADMITTED TO REHAB FROM ACUTE FLOOR.DR. WISAM DOYLE IS PATIENT PCP. DME AT HOME IS A WALKER, WHEELCHAIR, CANE AND PATIENT HAS LIFE ALERT. DISCHARGE PLANS ARE FOR PATIENT TO RETURN TO HER HOME. WILL CONTINUE TO FOLLOW WITH PATIENT.
--- NOTE | 2018-07-15 16:30 | NUR ---
NO CHANGE IN ASSESSMENT. RESP EVEN AND UNLAOBRED. NO DISTRESS NOTED. CL IN REACH.
--- NOTE | 2018-07-15 19:25 | NUR ---
PT AWAKE, PLEASANT, REQUESTING LIGHT OUT, NO OTHER NEEDS NOTED, FLUIDS AND CALL LIGHT WITHIN REACH
[2018-07-15 22:37] VITALS: BP 133/67
--- NOTE | 2018-07-16 00:41 | NUR ---
PT IN BED EYES CLOSED, BED LOW, FLUIDS AND CALL LIGHT WITHIN REACH
[2018-07-16 07:32] VITALS: BP 127/64
--- NOTE | 2018-07-16 08:00 | NUR ---
PT AM MEDS ADMINISETERD. PT DENIES NEEDS. WCTM.
--- NOTE | 2018-07-16 13:32 | NUR ---
Nutrition Follow Up: Pt stated that her appetite is good. She said that she likes Ensure okay and is drinking it some; she prefers strawberry. RD encouraged pt to continue increasing po intake as able. Diet: Regular PO Intake: 59% meal avg - po intake is improving BM: 07/16/18 + wound vac Labs reviewed Meds noted including Bumex Rec continue current diet. Will continue to honor food preferences. RD following.
--- NOTE | 2018-07-16 19:46 | NUR ---
PT UP TO TOILET, NO NEEDS NOTED, BED LOW, FLUIDS AND CALL LIGHT WITHIN REACH, NO OTHER NEEDS NOTED
[2018-07-16 21:29] VITALS: BP 115/62
--- NOTE | 2018-07-17 04:05 | NUR ---
PT IN BED LOW, EYES CLOSES, AROUSES EASILY TO VOICE, FLUIDS AND CALL LIGHT WITHIN REACH, NO NEEDS NOTED
[2018-07-17 07:58] VITALS: BP 149/79
--- NOTE | 2018-07-17 07:58 | NUR ---
PT SITTING UP IN CHAIR EATING BREAKFAST. PT REQUESTING TO GO HOME. WCTM.
[2018-07-17 08:29] LABS: RBC 3.75 10x6/uL (4.00-5.40); WBC 2.9 10x3/uL (4.8-10.8)
[2018-07-17 08:30] LABS: BASOPHILS 0.3 % (0-2); EOSINOPHILS 3.8 % (0-7); HEMATOCRIT 34.2 % (36.0-48.0); HEMOGLOBIN 10.9 g/dL (12-16); IMMATURE GRANULOCYTES 0.3 % (0-5); LYMPHOCYTES 15.1 % (15-50); MCH 29.1 pg (26.0-34.0); MCHC 31.9 g/dL (31.0-37.0); MCV 91.2 fL (80.0-100.0); MEAN PLATELET VOLUME 9.7 fL (7.4-10.4); MONOCYTES 8.9 % (2-11); NEUTROPHILS 71.6 % (40-80); PLATELET COUNT 123 10x3/uL (130-400); RDW 14.3 % (11.5-14.5)
[2018-07-17 08:38] LABS: ANION GAP 11.2 mmol/L (8-16); CALCIUM 8.5 mg/dL (8.5-10.1); CARBON DIOXIDE 30.2 mmol/L (21.0-32.0); CREATININE - SERUM 0.8 mg/dL (0.6-1.3); POTASSIUM - SERUM 3.4 mmol/L (3.5-5.1)
[2018-07-17 20:02] VITALS: BP 120/66
--- NOTE | 2018-07-17 21:35 | NUR ---
AWAKE AND ALERT. RESPIRATIONS UNLABORED. O2/2L ON PER NASAL CANNULA. NO DISTRESS NOTED. CALL LIGHT IN REACH.
--- NOTE | 2018-07-18 05:55 | NUR ---
QUIET HOURS. NO CHANGES IN CONDITION THIS SHIFT. RESTING IN BED WITH NO DISTRESS NOTED.
[2018-07-18 08:01] VITALS: BP 122/63
--- NOTE | 2018-07-18 08:15 | NUR ---
PT RESTING IN BED WITH EYES OPEN CALL LIGHT IN REACH WILL MONITER
--- NOTE | 2018-07-18 18:06 | NUR ---
PT RESTING IN BED WITH EYES OPEN CALL LIGHT IN REACH NO PROBLEM WILL MONITER
[2018-07-18 19:00] VITALS: BP 141/93
--- NOTE | 2018-07-18 19:42 | NUR ---
AWAKE AND ALERT. RESTING IN BED WITH O2/2L PER NASAL CANNULA. NO DISTRESS NOTED. LEFT GROIN WOUND VAC IN PLACE. NOTED RIGHT CHEST INFUSAPORT. CALL LIGHT IN REACH.
--- NOTE | 2018-07-19 05:23 | NUR ---
QUIET HOURS. RESTING IN BED WITH NO DISTRESS NOTED. CALL LIGHT IN REACH. NO CHANGE IN CONDITION THIS SHIFT.
[2018-07-19 08:00] VITALS: BP 130/69
--- NOTE | 2018-07-19 09:00 | NUR ---
PT AM MEDS ADMINSITERED. PT DENIES NEEDS. WCTM.
--- NOTE | 2018-07-19 19:03 | NUR ---
PATIENT IS IN THE RESTROOM. HE IS ASSISTED BY FAMILY MEMBERS. THEY DENY ANY NEEDS AT THIS TIME.
--- NOTE | 2018-07-19 19:04 | NUR ---
PATIENT IS RESTING IN HER BED AND WATCHING TV. SHE DENIES ANY NEEDS. BED IS DOWN LOW WITH SIDE RAILS UP X2. CALL LIGHT IS IN REACH.
[2018-07-19 19:15] VITALS: BP 123/59
--- NOTE | 2018-07-19 20:20 | NUR ---
PATIENT IS RESTING IN HER BED. SHE NEEDS ASSISTANCE TO THE BATHROOM. NO OTEHR NEEDS EXPRESSED AT THIS TIME.
--- NOTE | 2018-07-19 21:25 | NUR ---
PATIENT IS RESTING IN HIS BED. BED IS DOWN LOW WITH SIDE RAILS UP X2 AND CALL LIGHT IN REACH.
--- NOTE | 2018-07-20 00:03 | NUR ---
PATIENT IS SLEEPING. NO SIGNS OF DISTRESS. BED IS DOWN LOW WITH SIDE RAILS UP X2. CALL LIGHT IS IN REACH.
--- NOTE | 2018-07-20 04:02 | NUR ---
PATIENT APPEARS TO BE SLEEPING. NO SIGNS OF DISTRESS. BED IS DOWN LOW WITH SIDE RAILS UP X2. CALL LIGHT IS IN REACH.
--- NOTE | 2018-07-20 07:56 | NUR ---
ALERT AND ORIENTED. ASSISTED TO BR WITH RW SBA. PULLED PANTS UP/DOWN PER SELF. WIPED SELF. NO C/O PAIN. L GROIN INCISION WITH ALONZO CDI NO DRAINAGE.
[2018-07-20 08:30] VITALS: BP 127/72
--- NOTE | 2018-07-20 11:04 | NUR ---
RESTING IN BED AT THIS ITWY.
--- NOTE | 2018-07-20 13:02 | NUR ---
CALLED [phone] CALL BACK NUMBER FOR JOSE CASILLAS FOR DR GARCIA OFFICE. SHE WANTED TO BE NOTIFIED WITH INFORMATION RE: L GROIN INCISION. THE SITE WITH [facility] IS CDI AND NO DRAINAGE SINCE WOUND VAC WAS REMOVED ON SUNDAY. WILL GIVE HER THIS INFORMATION WHEN SHE CALLS ME BACK.
--- NOTE | 2018-07-20 17:11 | NUR ---
NO CHANGE IN ASSESSMENT. RESTING WO DISTRESS. CL IN REACH.
--- NOTE | 2018-07-20 18:58 | NUR ---
PATIENT IS RESTING IN HER BED. SHE DENIES ANY NEEDS. HER BED IS DOWN LOW WITH SIDE RAILS UP X2. CALL LIGHT IS IN REACH.
[2018-07-20 20:24] VITALS: BP 127/66
--- NOTE | 2018-07-21 00:04 | NUR ---
PATIENT IS SLEEPING. BED IS DOWN LOW WITH SIDE RAILS UP X2. CALL LIGHT IN REACH.
--- NOTE | 2018-07-21 04:03 | NUR ---
PATIENT IS SLEEPING. HER BED IS DOWN LOW WITH SIDE RAILS UP X2. CALL LIGHT IS IN REACH.
--- NOTE | 2018-07-21 08:40 | NUR ---
PT AM MEDS ADMINISTERED. PT DENIES NEEDS. WCTM.
--- NOTE | 2018-07-21 17:27 | NUR ---
PT EATING DINNER, DENIES NEEDS. WCTM.
[2018-07-21 19:20] VITALS: BP 118/67
--- NOTE | 2018-07-21 19:20 | NUR ---
PATIENT IS RESTING IN HER BED. SHE DENIES ANY NEEDS. BED IS DOWN LOW WITH SIDE RAILS UP X2. CALL LIGHT IS IN REACH.
--- NOTE | 2018-07-22 00:10 | NUR ---
PATIENT ASSISTED TO THE BATHROOM AND BACK. BED IS DOWN LOW WITH SIDE RAILS UP X2. CALL LIGHT IN REACH.
--- NOTE | 2018-07-22 04:03 | NUR ---
PATIENT IS SLEEPING. BED IS DOWN LOW WITH SIDE RAILS UP X2. CALL LIGHT IS IN REACH.
--- NOTE | 2018-07-22 05:12 | NUR ---
PATIENT REFUSED SHOWER. SHE STATES SHE, "WILL TAKE ONE LATER TODAY",SHE "WANTS TO TAKE A SHOWER ON SUNDAY BECAUSE SHES GOING TO DISCHARGE ON SUNDAY SO SHE CAN HAVE HER SURGERY ON SUNDAY".
[2018-07-22 08:00] VITALS: BP 140/79
[2018-07-22 08:02] LABS: BASOPHILS 0.3 % (0-2); EOSINOPHILS 4.4 % (0-7); HEMATOCRIT 34.8 % (36.0-48.0); HEMOGLOBIN 11.3 g/dL (12-16); IMMATURE GRANULOCYTES 0.3 % (0-5); LYMPHOCYTES 15.5 % (15-50); MCH 29.4 pg (26.0-34.0); MCHC 32.5 g/dL (31.0-37.0); MCV 90.4 fL (80.0-100.0); MEAN PLATELET VOLUME 9.8 fL (7.4-10.4); MONOCYTES 7.3 % (2-11); NEUTROPHILS 72.2 % (40-80); RBC 3.85 10x6/uL (4.00-5.40); RDW 14.6 % (11.5-14.5); WBC 3.2 10x3/uL (4.8-10.8)
[2018-07-22 08:06] LABS: PLATELET COUNT 206 10x3/uL (130-400)
[2018-07-22 08:11] LABS: ANION GAP 10.4 mmol/L (8-16); CALCIUM 8.9 mg/dL (8.5-10.1); CARBON DIOXIDE 30.6 mmol/L (21.0-32.0); CREATININE - SERUM 0.8 mg/dL (0.6-1.3)
--- NOTE | 2018-07-22 09:21 | NUR ---
PATIENT IS ALERT/SOME CONFUSION/FORGETFULLNESS NOTED. BED ALARM ON. CALL LIGHT WITHIN REACH. DR. Dawna RYAN INTO SEE PATIENT. WILL CONTINUE WITH PLAN OF CARE
--- NOTE | 2018-07-22 10:36 | NUR ---
Nutrition Follow Up: Regular diet with 50% intake of meals yesterday Pt reports appetite is good and she is eating very well Encouraged Ensure and pt agreed-recommend pt take Ensure before bed or with medications Pt reports she plans to d/c tomorrow RD following
--- NOTE | 2018-07-22 12:27 | NUR ---
THIS NURSE TALKED WITH DAUGHTER IN REGARDS TO PATIENT POSSIBLE DISCHARGE TOMORROW. DAUGHTER, SAKSHI, STATED THAT FAMILY HAS TALKED TO DR BOYCE AT [facility] AND PATIENT IS TO HAVE SURGERY ON MORNING. THIS NURSE HAS TALKED TO ALLERGY SPECIALIST ABOUT THIS AND PAGED JOSE RN, DR AU COYS NURSE
--- NOTE | 2018-07-22 13:46 | NUR ---
PATIENT IN REHAB ROOM. WORKING WITH PHYSICAL THERAPIST. DENIES ANY PAIN/DISC AT THIS TIME.
--- NOTE | 2018-07-22 15:11 | NUR ---
SURGICAL CLIPS REMOVED LEFT GROIN AREA PER DOCTORS ORDERS. STERI STRIPS APPLIED. INCISION CLEAN. EDGES APPROXAMATED.
[2018-07-22 19:00] VITALS: BP 133/75
--- NOTE | 2018-07-22 19:28 | NUR ---
PT UP TO TOILET, NO NEEDS STATED, FLUIDS AND CALL LIGHT WITHIN REACH
--- NOTE | 2018-07-23 00:55 | NUR ---
PT UP TO TOILET, NO OTHER NEEDS NOTED OR VOICED, BED IN LOW POSITION, FLUIDS AND CALL LIGHT WITHIN REACH
--- NOTE | 2018-07-23 07:35 | NUR ---
ALERT AND ORIENTED. NO DISTRESS NOTED. CL IN REACH.
[2018-07-23 08:00] VITALS: BP 139/69
--- NOTE | 2018-07-23 09:41 | NUR ---
PATIENT DISCHARGING HOME TODAY WITH DAUGHTER . NO HOME HEALTH OR DME NEEDED AT THIS TIME. AN APPOINTMENT WITH DR. WISAM DOYLE WILL BE MADE AT TIME OF DISCHARGE FROM [facility].PATIENT CHOICE FORM AND IMFM FORMS SIGNED, COPY GIVEN TO PATIENT AND FILED IN CHART. DISCHARGE INSTRUCTIONS WITH [facility] [employer] FAXED TO PCP. FAMILY AT BEDSIDE.
--- NOTE | 2018-07-23 12:14 | NUR ---
NO CHANGE IN ASSESSMENT. ASSISTED TO CAR IN WC BY STAFF FOR DC HOME WITH FAMILY. DC INSTRUCTIONS SENT WITH PATIENT AND FAMILY.
== END 2018-07-23 12:13 | disposition home or self-care (01) | DRG 92 ==
LOC: D.REHAB 15:15
PROVIDERS: ADMIT Emergency Medicine; ATTEND Emergency Medicine
DX: G72.81 Critical illness myopathy (principal); D62 Acute posthemorrhagic anemia; I97.620 Postprocedural hemorrhage of a circulatory system organ or structure following other procedure; I95.9 Hypotension, unspecified; R00.1 Bradycardia, unspecified; I73.9 Peripheral vascular disease, unspecified; R06.02 Shortness of breath; I10 Essential (primary) hypertension; E03.9 Hypothyroidism, unspecified; I34.0 Nonrheumatic mitral (valve) insufficiency; I35.0 Nonrheumatic aortic (valve) stenosis; Z85.3 Personal history of malignant neoplasm of breast